=== PATIENT | male | born 1980 | race African-American/Black ===

== ENCOUNTER 2020-10-12 20:32 | Emergency (ER) | payer OTHER ==
[2020-10-12 21:23] LABS: #Basophils 0.1 thou/uL (0.0-0.2); #Eosinphils 0.1 thou/uL (0.0-0.7); #Lymphocytes 2.7 thou/uL (1.20-3.40); #Monocytes 1.1 thou/uL (0.11-0.59); #Neutrophils 15.5 thou/uL (1.40-6.50); %Basophils 0.4 % (0.0-1.0); %Eosinophils 0.4 % (0.0-10.0); %Lymphocytes 13.8 % (21.0-51.0); %Monocytes 5.7 % (0.0-10.0); %Neutrophils 79.8 % (42.0-75.0); Hemoglobin 14.2 g/dL (14.0-18.0); Mean Corpuscular HGB CONC 32.5 g/dL (32.0-36.0); Mean Corpuscular Hemoglobin 32.1 pg (27.0-31.0); Mean Corpuscular Volume 98.8 fL (78.0-98.0); Mean Platelet Volume 7.3 fL (7.4-10.4); Platelet Count 322 thou/uL (130-400); RBC Distribution Width 13.4 % (11.5-14.5); Red Blood Cell (RBC) Count 4.42 mill/uL (4.70-6.10); White Blood Cell (WBC) Count 19.4 thou/uL (4.8-10.8)
[2020-10-12] MEDS ORDERED: Clindamycin/D5W 900 mg/50 ml Premix Bag ONE (21:25)
[2020-10-12] MEDS ORDERED: Ketorolac Tromethamine 30 MG/ML VIAL ONE (21:33)
[2020-10-12 21:49] LABS: ALT (SGPT) 11 U/L (8-55); AST (SGOT) 9 U/L (5-34); Albumin 3.8 g/dL (3.5-5.0); Alkaline Phosphatase 85 U/L (40-110); Anion Gap 11 mmol/L (10-20); BUN (Urea Nitrogen) 23 mg/dL (8.9-20.6); Bilirubin, Total 0.2 mg/dL (0.2-1.2); Calc. Creatinine Clearance 0 mL/min (70-130); Calcium 8.9 mg/dL (7.8-10.44); Carbon Dioxide 33 mmol/L (22-29); Chloride 95 mmol/L (98-107); Globulin 2.7 g/dL (2.4-3.5); Glucose 82 mg/dL (70-105); Potassium 3.3 mmol/L (3.5-5.1); Protein, Total 6.5 g/dL (6.0-8.3); Sodium 136 mmol/L (136-145)
== END 2020-10-12 22:45 | disposition home or self-care (01) ==
LOC: ERS 20:32
DX: L03.115 Cellulitis of right lower limb (principal); Z87.19 Personal history of other diseases of the digestive system
CPT/HCPCS: 36415; 80053; 85025; 85652; 86140; 87040; 96365; 96375; J1885; J3490

== ENCOUNTER 2020-12-14 23:47 | Emergency (ER) | payer OTHER ==
[2020-12-15] MEDS ORDERED: Lidocaine 1% w/Epinephrine 1:100K 20 ML VIAL ONE (01:12)
[2020-12-15] MEDS ORDERED: Morphine 4 MG/ML VIAL ONE (01:25)
== END 2020-12-15 02:12 | disposition home or self-care (01) ==
LOC: ERS 23:47
DX: L02.211 Cutaneous abscess of abdominal wall (principal)
CPT/HCPCS: 10060; 96372; J2270

== ENCOUNTER 2020-12-20 13:42 | Inpatient (IN) | payer OTHER ==
[2020-12-20] MEDS ORDERED: Morphine 4 MG/ML VIAL ONE ×2 (16:07→17:25)
[2020-12-20] MEDS ORDERED: Ondansetron PF 4 MG/2 ML Vial ONE (16:07)
[2020-12-20 16:20] LABS: Hemoglobin 16.1 g/dL (14.0-18.0); Mean Corpuscular HGB CONC 32.9 g/dL (32.0-36.0); Mean Corpuscular Hemoglobin 32.3 pg (27.0-31.0); Mean Corpuscular Volume 98.1 fL (78.0-98.0); Mean Platelet Volume 6.8 fL (7.4-10.4); Platelet Count 432 thou/uL (130-400); RBC Distribution Width 13.1 % (11.5-14.5); Red Blood Cell (RBC) Count 4.99 mill/uL (4.70-6.10); White Blood Cell (WBC) Count 22.5 thou/uL (4.8-10.8)
[2020-12-20] MEDS ORDERED: Piperacillin/Tazobactam 3.375 GM VIAL ONE (16:32)
[2020-12-20 16:40] LABS: ALT (SGPT) 27 U/L (8-55); AST (SGOT) 15 U/L (5-34); Alkaline Phosphatase 91 U/L (40-110); Anion Gap 15 mmol/L (10-20); BUN (Urea Nitrogen) 13 mg/dL (8.9-20.6); Bilirubin, Total 0.4 mg/dL (0.2-1.2); Calc. Creatinine Clearance 0 mL/min (70-130); Calcium 9.4 mg/dL (7.8-10.44); Carbon Dioxide 25 mmol/L (22-29); Chloride 98 mmol/L (98-107); Globulin 3.2 g/dL (2.4-3.5); Glucose 100 mg/dL (70-105); Protein, Total 7.2 g/dL (6.0-8.3); Sodium 134 mmol/L (136-145)
[2020-12-20 16:43] LABS: Band 3 % (5-11); Lymphocytes 10 % (21-51); MDiff Complete? YES; Monocytes 4 % (0-10); Neutrophil 81 % (42-75); Platelet Morphology Comment Appears Increased; RBC Morphology Normal; Reactive Lymphocytes 2 % (0-10)
[2020-12-20] MEDS ORDERED: Vancomycin 1.5 GRAM/300 ML BAG 1.5 GM in Premix Bag 1 BAG IVPB SCH (16:45)
[2020-12-20] MEDS ORDERED: Cefepime 2 GM VIAL ONE (17:23)
[2020-12-20] MEDS ORDERED: Acetaminophen 325 MG TAB PO PRN (18:28)
[2020-12-20 19:20] LABS: Lactic Acid 2.2 mmol/L (0.5-2.2)
[2020-12-20] MEDS: Cefepime 2 GM in Sodium Chloride 0.9% 100 ML IVPB SCH (20:29)
[2020-12-20] MEDS ORDERED: Nicotine 21 MG PATCH TD SCH (21:00)
[2020-12-20] MEDS: Sodium Chloride 0.9% 1,000 ML IV SCH (21:26)
[2020-12-20] MEDS: Morphine 2 MG/ML VIAL SLOW IVP PRN (21:28)
[2020-12-20 21:42] VITALS: BMI 23.3
[2020-12-20] MEDS: HYDROcodone/Acetaminophen 5/325 mg Tablet PO PRN (22:41)
[2020-12-21] MEDS: Morphine 2 MG/ML VIAL SLOW IVP PRN ×2 (02:05→08:02)
[2020-12-21] MEDS ORDERED: Vancomycin 1 GM in Premix Bag 1 BAG IVPB SCH (05:00)
[2020-12-21] MEDS: HYDROcodone/Acetaminophen 5/325 mg Tablet PO PRN (05:04)
[2020-12-21] MEDS: Sodium Chloride 0.9% 1,000 ML IV SCH (05:05)
[2020-12-21 06:08] LABS: #Eosinphils 0.1 thou/uL (0.0-0.7); #Lymphocytes 3.2 thou/uL (1.20-3.40); #Monocytes 0.6 thou/uL (0.11-0.59); #Neutrophils 7.1 thou/uL (1.40-6.50); %Basophils 0.3 % (0.0-1.0); %Eosinophils 0.6 % (0.0-10.0); %Lymphocytes 28.7 % (21.0-51.0); %Monocytes 5.7 % (0.0-10.0); %Neutrophils 64.7 % (42.0-75.0); Hemoglobin 13.8 g/dL (14.0-18.0); Mean Corpuscular Hemoglobin 32.8 pg (27.0-31.0); Mean Corpuscular Volume 99.1 fL (78.0-98.0); Platelet Count 393 thou/uL (130-400); RBC Distribution Width 13.1 % (11.5-14.5); Red Blood Cell (RBC) Count 4.21 mill/uL (4.70-6.10)
[2020-12-21 06:27] LABS: Anion Gap 8 mmol/L (10-20); BUN (Urea Nitrogen) 11 mg/dL (8.9-20.6); Calc. Creatinine Clearance 108 mL/min (70-130); Calcium 8.3 mg/dL (7.8-10.44); Carbon Dioxide 29 mmol/L (22-29); Chloride 103 mmol/L (98-107); Glucose 101 mg/dL (70-105); Potassium 4.1 mmol/L (3.5-5.1); Sodium 136 mmol/L (136-145)
[2020-12-21] MEDS: Cefepime 2 GM in Sodium Chloride 0.9% 100 ML IVPB SCH (07:56)
[2020-12-21 08:56] VITALS: BP 162/113; TEMP 98.3
[2020-12-21 11:10] LABS: SARS-CoV-2 PCR by NAA Not Detected (NotDetected)
== END 2020-12-21 08:55 | disposition home or self-care (01) | DRG 872 ==
LOC: ERS 13:42 → T4-B 18:13
PROVIDERS: ADMIT Internal Medicine; ATTEND Internal Medicine
DX: A41.9 Sepsis, unspecified organism (principal); L02.211 Cutaneous abscess of abdominal wall; F17.210 Nicotine dependence, cigarettes, uncomplicated; R03.0 Elevated blood-pressure reading, without diagnosis of hypertension; F31.9 Bipolar disorder, unspecified; Z20.822 Contact with and (suspected) exposure to COVID-19; Z88.8 Allergy status to other drugs, medicaments and biological substances
CPT/HCPCS: 36415; 80048; 80053; 83605; 85025; 87040; J0692; J2270; J2405; J2543; J3370; J3490; U0003; U0005

== ENCOUNTER 2021-04-01 10:41 | Emergency (ER) | payer OTHER ==
[~2021-04-01 10:41] MED LIST: Iopamidol-370 76% 500 ML 1 ML ONE
[2021-04-01 11:44] LABS: #Lymphocytes 1.9 thou/uL (1.20-3.40); #Monocytes 0.9 thou/uL (0.11-0.59); #Neutrophils 12.3 thou/uL (1.40-6.50); %Basophils 0.2 % (0.0-1.0); %Eosinophils 0.3 % (0.0-10.0); %Lymphocytes 12.5 % (21.0-51.0); %Monocytes 6.1 % (0.0-10.0); %Neutrophils 80.8 % (42.0-75.0); Hemoglobin 15.3 g/dL (14.0-18.0); Mean Corpuscular HGB CONC 35.2 g/dL (32.0-36.0); Mean Corpuscular Hemoglobin 34.2 pg (27.0-31.0); Mean Corpuscular Volume 97.2 fL (78.0-98.0); Mean Platelet Volume 7.2 fL (7.4-10.4); Platelet Count 363 thou/uL (130-400); RBC Distribution Width 12.8 % (11.5-14.5); Red Blood Cell (RBC) Count 4.47 mill/uL (4.70-6.10); White Blood Cell (WBC) Count 15.2 thou/uL (4.8-10.8)
[2021-04-01 12:32] LABS: Bilirubin Negative (Negative); Blood, Urine Negative (Negative); Clarity Clear (Clear); Glucose, Urine (Dipstick) Normal (Negative); Ketone, Urine 20 mg/dL (Negative); Leukocyte Negative Leu/uL (Negative); Nitrite Negative (Negative); Protein, Urine (Dipstick) 10 mg/dL (Neg-Trace); Specific Gravity, Urine 1.017 (1.002-1.036); Urobilinogen Normal mg/dL (Less than 2)
[2021-04-01 12:32] LABS: ALT (SGPT) 22 U/L (8-55); AST (SGOT) 16 U/L (5-34); Albumin 3.6 g/dL (3.5-5.0); Alkaline Phosphatase 65 U/L (40-110); Anion Gap 15 mmol/L (10-20); BUN (Urea Nitrogen) 19 mg/dL (8.9-20.6); Bilirubin, Total 0.6 mg/dL (0.2-1.2); Calc. Creatinine Clearance 0 mL/min (70-130); Calcium 8.6 mg/dL (7.8-10.44); Carbon Dioxide 27 mmol/L (22-29); Chloride 94 mmol/L (98-107); Globulin 2.3 g/dL (2.4-3.5); Glucose 89 mg/dL (70-105); Lipase 66 U/L (8-78); Potassium 3.3 mmol/L (3.5-5.1); Protein, Total 5.9 g/dL (6.0-8.3); Sodium 133 mmol/L (136-145)
[2021-04-01] MEDS ORDERED: Piperacillin/Tazobactam 3.375 GM VIAL ONE (12:45)
[2021-04-01] MEDS ORDERED: Ketorolac Tromethamine 30 MG/ML VIAL ONE (12:45)
== END 2021-04-01 16:07 | disposition home or self-care (01) ==
LOC: ERS 10:41
DX: R10.32 Left lower quadrant pain (principal); F17.210 Nicotine dependence, cigarettes, uncomplicated
CPT/HCPCS: 36415; 71045; 74177; 80053; 81003; 83605; 83690; 84484; 85025; 87040; 87086; 93005; 96365; 96366; 96375; J1885; J2543

== ENCOUNTER 2021-07-10 08:16 | Emergency (ER) | payer OTHER ==
[2021-07-10] MEDS ORDERED: Ketorolac Tromethamine 30 MG/ML VIAL ONE (13:50)
[2021-07-10] MEDS ORDERED: Ondansetron PF 4 MG/2 ML Vial ONE (13:50)
[2021-07-10 14:17] LABS: #Lymphocytes 2.1 thou/uL (1.20-3.40); #Monocytes 0.6 thou/uL (0.11-0.59); #Neutrophils 7.2 thou/uL (1.40-6.50); %Basophils 0.2 % (0.0-1.0); %Eosinophils 0.3 % (0.0-10.0); %Lymphocytes 21.3 % (21.0-51.0); %Monocytes 5.8 % (0.0-10.0); %Neutrophils 72.4 % (42.0-75.0); Hemoglobin 16.9 g/dL (14.0-18.0); Mean Corpuscular HGB CONC 33.7 g/dL (32.0-36.0); Mean Corpuscular Hemoglobin 33.1 pg (27.0-31.0); Mean Corpuscular Volume 98.2 fL (78.0-98.0); Mean Platelet Volume 7.1 fL (7.4-10.4); Platelet Count 339 thou/uL (130-400); RBC Distribution Width 12.2 % (11.5-14.5); White Blood Cell (WBC) Count 9.9 thou/uL (4.8-10.8)
[2021-07-10 14:23] LABS: Bilirubin Negative (Negative); Blood, Urine Negative (Negative); Clarity Turbid (Clear); Glucose, Urine (Dipstick) Normal (Negative); Ketone, Urine Trace mg/dL (Negative); Leukocyte Negative Leu/uL (Negative); Nitrite Negative (Negative); Protein, Urine (Dipstick) 20 mg/dL (Neg-Trace); Specific Gravity, Urine 1.016 (1.002-1.036); Urobilinogen Normal mg/dL (Less than 2)
[2021-07-10 14:33] LABS: ALT (SGPT) 20 U/L (8-55); AST (SGOT) 14 U/L (5-34); Albumin 4.2 g/dL (3.5-5.0); Alkaline Phosphatase 82 U/L (40-110); Anion Gap 13 mmol/L (10-20); BUN (Urea Nitrogen) 18 mg/dL (8.9-20.6); Bilirubin, Total 0.4 mg/dL (0.2-1.2); Calc. Creatinine Clearance 0 mL/min (70-130); Calcium 10.1 mg/dL (7.8-10.44); Carbon Dioxide 36 mmol/L (22-29); Chloride 92 mmol/L (98-107); Globulin 3.1 g/dL (2.4-3.5); Glucose 103 mg/dL (70-105); Lipase 60 U/L (8-78); Potassium 3.1 mmol/L (3.5-5.1); Protein, Total 7.3 g/dL (6.0-8.3); Sodium 138 mmol/L (136-145)
== END 2021-07-10 16:07 | disposition home or self-care (01) ==
LOC: ERS 08:16
DX: K29.00 Acute gastritis without bleeding (principal); R10.814 Left lower quadrant abdominal tenderness; F17.210 Nicotine dependence, cigarettes, uncomplicated; Z87.19 Personal history of other diseases of the digestive system
CPT/HCPCS: 80053; 81003; 83690; 84484; 85025; 93005; 96374; 96375; J1885; J2405

== ENCOUNTER 2021-08-28 14:56 | Inpatient (IN) | payer OTHER ==
[~2021-08-28 14:56] MED LIST changes: +GASTROGRAFIN 30 ML BOT ONE
[2021-08-28 16:58] LABS: #Basophils 0.1 thou/uL (0.0-0.2); #Eosinphils 0.1 thou/uL (0.0-0.7); #Lymphocytes 1.9 thou/uL (1.20-3.40); #Monocytes 0.6 thou/uL (0.11-0.59); #Neutrophils 9.9 thou/uL (1.40-6.50); %Basophils 0.7 % (0.0-1.0); %Eosinophils 0.9 % (0.0-10.0); %Lymphocytes 15.4 % (21.0-51.0); %Monocytes 4.4 % (0.0-10.0); %Neutrophils 78.6 % (42.0-75.0); Hemoglobin 13.2 g/dL (14.0-18.0); Mean Corpuscular HGB CONC 32.2 g/dL (32.0-36.0); Mean Corpuscular Hemoglobin 32.5 pg (27.0-31.0); Platelet Count 369 thou/uL (130-400); RBC Distribution Width 12.8 % (11.5-14.5); Red Blood Cell (RBC) Count 4.07 mill/uL (4.70-6.10); White Blood Cell (WBC) Count 12.6 thou/uL (4.8-10.8)
[2021-08-28 17:12] LABS: ALT (SGPT) 29 U/L (8-55); AST (SGOT) 19 U/L (5-34); Albumin 3.8 g/dL (3.5-5.0); Alkaline Phosphatase 101 U/L (40-110); Anion Gap 12 mmol/L (10-20); BUN (Urea Nitrogen) 19 mg/dL (8.9-20.6); Bilirubin, Total 0.3 mg/dL (0.2-1.2); Calc. Creatinine Clearance 0 mL/min (70-130); Calcium 8.7 mg/dL (7.8-10.44); Carbon Dioxide 30 mmol/L (22-29); Chloride 100 mmol/L (98-107); Globulin 2.2 g/dL (2.4-3.5); Glucose 93 mg/dL (70-105); Lipase 280 U/L (8-78); Potassium 3.8 mmol/L (3.5-5.1); Sodium 138 mmol/L (136-145)
[2021-08-28 17:26] LABS: Bilirubin Negative (Negative); Blood, Urine Negative (Negative); Clarity Clear (Clear); Glucose, Urine (Dipstick) 70 mg/dL (Negative); Ketone, Urine Negative (Negative); Leukocyte Negative Leu/uL (Negative); Nitrite Negative (Negative); Protein, Urine (Dipstick) 10 mg/dL (Neg-Trace); Specific Gravity, Urine 1.038 (1.002-1.036); Urobilinogen Normal mg/dL (Less than 2); pH, Urine 7.5 (5.0-9.0)
[2021-08-28] MEDS ORDERED: Ondansetron PF 4 MG/2 ML Vial ONE (17:58)
[2021-08-28] MEDS ORDERED: Morphine 4 MG/ML VIAL ONE (17:58)
[2021-08-28] MEDS ORDERED: diphenhydrAMINE 50 MG/ML VIAL ONE (18:42)
[2021-08-28] MEDS ORDERED: Metoclopramide HCl 10 MG/2 ML VIAL ONE (18:42)
[2021-08-28 18:55] LABS: Amphetamine Detected (NotDetected); Barbiturates Screen Not Detected (NotDetected); Benzodiazepine Screen Not Detected (NotDetected); Cocaine Metabolite Screen Not Detected (NotDetected); Methadone Not Detected (NotDetected); Methamphetamine Detected (NotDetected); Opiate Screen Not Detected (NotDetected); Oxycodone Screen Not Detected (NotDetected); Phencyclidine (PCP) Not Detected (NotDetected); THC/Cannabinoid Screen Detected (NotDetected); Tricyclic Screen Not Detected (NotDetected)
[2021-08-28] MEDS ORDERED: Sodium Chloride 0.9% 1,000 ML IV SCH (20:15)
[2021-08-28] MEDS ORDERED: Ondansetron ODT 4 MG TAB SL PRN (20:15)
[2021-08-28] MEDS ORDERED: Ondansetron PF 4 MG/2 ML Vial IVP PRN (20:15)
[2021-08-28] MEDS ORDERED: Enoxaparin Sodium 40 MG/0.4 ML SYRINGE SC SCH (20:30)
[2021-08-28] MEDS ORDERED: diphenhydrAMINE 12.5 MG in Sodium Chloride 0.9% 50 ML IVPB PRN (21:42)
[2021-08-28] MEDS: hydrALAZINE 20 MG/ML VIAL SLOW IVP PRN (22:57)
[2021-08-28] MEDS: Lactated Ringer's 1,000 ML IV SCH (22:58)
[2021-08-28 23:00] LABS: Alcohol Less than 10 mg/dL (Less than 10); Iron 132 ug/dL (65-175)
[2021-08-28 23:17] LABS: Ferritin 67.51 ng/mL (22-322)
[2021-08-28 23:24] LABS: Vitamin B12 422 pg/mL (211-911)
[2021-08-28 23:35] VITALS: BMI 21.5
[2021-08-29 01:38] LABS: HBSAg Index 0.23 S/CO (0-0.99); HIV (1/2) Antibody/Antigen Non-Reactive (NonReactive); HIV 1/2 INDEX 0.16 S/CO (<1.00); Hep A IgM AB Non-Reactive (NonReactive); Hep A IgM S/CO 0.11 S/CO (0-0.79); Hep B Surf Ag Non-Reactive S/CO (NonReactive); Hep C IgG Ab Non-Reactive (NonReactive); Hep C Index 0.06 S/CO (0-0.79); Hepatitis B Core IgM Abs Non-Reactive (NonReactive)
[2021-08-29] MEDS: Morphine 4 MG/ML VIAL SLOW IVP PRN ×4 (04:00→18:25)
[2021-08-29] MEDS: Lactated Ringer's 1,000 ML IV SCH ×4 (04:04→16:30)
[2021-08-29] MEDS: hydrALAZINE 20 MG/ML VIAL SLOW IVP PRN (04:17)
[2021-08-29] MEDS ORDERED: Amlodipine 5 MG TAB PO SCH (09:00)
[2021-08-29] MEDS ORDERED: Ibuprofen 600 MG TAB PO PRN (11:18)
[2021-08-29] MEDS ORDERED: Ibuprofen 600 MG TAB PO SCH (11:30)
[2021-08-29 13:09] LABS: Syphilis Antibody INDETERMINATE (Nonreactive); Syphilis Antibody Index 8.73 S/CO (<1.00 Non-Reactive)
[2021-08-29] MEDS ORDERED: Cyclobenzaprine 10 MG TAB PO SCH (14:00)
[2021-08-29 14:37] LABS: SARS-CoV-2 PCR by NAA Not Detected (NotDetected)
[2021-08-29 16:39] LABS: #Basophils 0.1 thou/uL (0.0-0.2); #Eosinphils 0.1 thou/uL (0.0-0.7); #Lymphocytes 2.9 thou/uL (1.20-3.40); #Monocytes 0.8 thou/uL (0.11-0.59); #Neutrophils 9.2 thou/uL (1.40-6.50); %Basophils 0.6 % (0.0-1.0); %Eosinophils 0.8 % (0.0-10.0); %Lymphocytes 22.4 % (21.0-51.0); %Neutrophils 70.2 % (42.0-75.0); Hemoglobin 13.6 g/dL (14.0-18.0); Mean Corpuscular HGB CONC 32.4 g/dL (32.0-36.0); Mean Corpuscular Hemoglobin 32.7 pg (27.0-31.0); Mean Platelet Volume 6.6 fL (7.4-10.4); Platelet Count 382 thou/uL (130-400); RBC Distribution Width 13.1 % (11.5-14.5); Red Blood Cell (RBC) Count 4.14 mill/uL (4.70-6.10); White Blood Cell (WBC) Count 13.1 thou/uL (4.8-10.8)
[2021-08-29 17:18] LABS: ALT (SGPT) 31 U/L (8-55); AST (SGOT) 18 U/L (5-34); Albumin 3.6 g/dL (3.5-5.0); Anion Gap 13 mmol/L (10-20); BUN (Urea Nitrogen) 11 mg/dL (8.9-20.6); Bilirubin, Total 0.3 mg/dL (0.2-1.2); Calc. Creatinine Clearance 95 mL/min (70-130); Calcium 8.6 mg/dL (7.8-10.44); Carbon Dioxide 26 mmol/L (22-29); Cardiac Risk 2.4 (Less than 4.5); Chloride 103 mmol/L (98-107); Cholesterol 145 mg/dl (< 200 Desired); Globulin 2.4 g/dL (2.4-3.5); Glucose 110 mg/dL (70-105); HDL Cholesterol 60 mg/dL (>60 Neg Risk); LDL Cholesterol, Calculated 68 mg/dL; Potassium 3.8 mmol/L (3.5-5.1); Sodium 138 mmol/L (136-145); Triglycerides 83 mg/dL (Less than 150)
[2021-08-29 17:39] LABS: Alkaline Phosphatase 86 U/L (40-110)
[2021-08-29 20:15] LABS: Lactic Acid 2.3 mmol/L (0.5-2.2)
[2021-08-29 20:34] VITALS: BP 149/94; TEMP 97.7
[2021-08-30] MEDS ORDERED: Amlodipine 5 MG TAB PO SCH (09:00)
[2021-08-30] MEDS ORDERED: Nicotine 21 MG PATCH TD SCH (09:00)
[2021-08-30 13:38] LABS: Hematocrit 39.7 % (37.5-51.0); RBC Folate Test Component 668 ng/mL (>498)
== END 2021-08-29 20:40 | disposition left against medical advice (07) | DRG 871 ==
LOC: ERS 14:56 → T4-A 18:14
PROVIDERS: ADMIT Student in an Organized Health Care Education/Training Program; ATTEND Student in an Organized Health Care Education/Training Program
DX: A41.9 Sepsis, unspecified organism (principal); K85.90 Acute pancreatitis without necrosis or infection, unspecified; Z20.822 Contact with and (suspected) exposure to COVID-19; Z53.29 Procedure and treatment not carried out because of patient's decision for other reasons; G44.209 Tension-type headache, unspecified, not intractable; N42.89 Other specified disorders of prostate; F17.210 Nicotine dependence, cigarettes, uncomplicated; F19.10 Other psychoactive substance abuse, uncomplicated; F15.10 Other stimulant abuse, uncomplicated; F12.10 Cannabis abuse, uncomplicated; F10.10 Alcohol abuse, uncomplicated; K52.9 Noninfective gastroenteritis and colitis, unspecified; Z88.8 Allergy status to other drugs, medicaments and biological substances; Z87.19 Personal history of other diseases of the digestive system; Z83.3 Family history of diabetes mellitus; Z84.1 Family history of disorders of kidney and ureter; Z81.8 Family history of other mental and behavioral disorders; Z83.1 Family history of other infectious and parasitic diseases; Z59.00 Homelessness unspecified
CPT/HCPCS: 36415; 70450; 71045; 74177; 76705; 76770; 80053; 80061; 80074; 80306; 80307; 81003; 82607; 82728; 82747; 83036; 83540; 83605; 83690; 84145; 84484; 85025; 86593; 86780; 87040; 87086; 87389; 93005; 96374; 96375; J0360; J1200; J2270; J2405; J2765; J7050; J7120; Q9963; Q9967; U0003; U0005

== ENCOUNTER 2022-02-10 21:49 | Observation (INO) | payer OTHER ==
[2022-02-10] MEDS ORDERED: Nitroglycerin 2% Ointment 1 INCH/1 GM Packet ONE (22:11)
[2022-02-10] MEDS ORDERED: hydrALAZINE 20 MG/ML VIAL ONE (22:11)
[2022-02-10 22:24] LABS: #Eosinphils 0.1 thou/uL (0.0-0.7); #Lymphocytes 2.1 thou/uL (1.20-3.40); #Monocytes 0.4 thou/uL (0.11-0.59); #Neutrophils 9.4 thou/uL (1.40-6.50); %Basophils 0.3 % (0.0-1.0); %Eosinophils 0.5 % (0.0-10.0); %Lymphocytes 17.3 % (21.0-51.0); %Monocytes 3.4 % (0.0-10.0); %Neutrophils 78.6 % (42.0-75.0); Hemoglobin 13.7 g/dL (14.0-18.0); Mean Corpuscular HGB CONC 33.8 g/dL (32.0-36.0); Mean Corpuscular Hemoglobin 32.8 pg (27.0-31.0); Mean Platelet Volume 7.1 fL (7.4-10.4); Platelet Count 381 thou/uL (130-400); RBC Distribution Width 13.4 % (11.5-14.5); Red Blood Cell (RBC) Count 4.19 mill/uL (4.70-6.10)
[2022-02-10 22:46] LABS: ALT (SGPT) 25 U/L (8-55); AST (SGOT) 19 U/L (5-34); Albumin 4.3 g/dL (3.5-5.0); Alkaline Phosphatase 77 U/L (40-110); Anion Gap 15 mmol/L (10-20); BUN (Urea Nitrogen) 18 mg/dL (8.9-20.6); Bilirubin, Total 0.4 mg/dL (0.2-1.2); CK (CPK) 111 U/L (30-200); Calc. Creatinine Clearance 0 mL/min (70-130); Calcium 9.1 mg/dL (7.8-10.44); Carbon Dioxide 33 mmol/L (22-29); Chloride 96 mmol/L (98-107); Estimated GFR 114; Globulin 2.6 g/dL (2.4-3.5); Glucose 108 mg/dL (70-105); Protein, Total 6.9 g/dL (6.0-8.3); Sodium 141 mmol/L (136-145)
[2022-02-10] MEDS ORDERED: Ondansetron PF 4 MG/2 ML Vial ONE (23:57)
[2022-02-11 00:13] LABS: Amphetamine Detected (NotDetected); Barbiturates Screen Not Detected (NotDetected); Benzodiazepine Screen Not Detected (NotDetected); Cocaine Metabolite Screen Detected (NotDetected); Methadone Not Detected (NotDetected); Methamphetamine Detected (NotDetected); Opiate Screen Not Detected (NotDetected); Oxycodone Screen Not Detected (NotDetected); Phencyclidine (PCP) Not Detected (NotDetected); THC/Cannabinoid Screen Detected (NotDetected); Tricyclic Screen Not Detected (NotDetected)
[2022-02-11 01:06] VITALS: BMI 19.8
[2022-02-11 01:43] LABS: Troponin I 0.012 ng/mL (< 0.028)
[2022-02-11] MEDS ORDERED: Acetaminophen 325 MG TAB PO SCH (04:00)
[2022-02-11] MEDS ORDERED: Ondansetron ODT 4 MG TAB PO PRN (04:33)
[2022-02-11] MEDS ORDERED: Nitroglycerin 0.4 MG TAB (25 Tab Bottle) SL PRN (04:33)
[2022-02-11] MEDS ORDERED: Acetaminophen 650 MG Suppository PR PRN (04:33)
[2022-02-11] MEDS ORDERED: Ondansetron PF 4 MG/2 ML Vial IVP PRN (04:33)
[2022-02-11] MEDS ORDERED: Lorazepam 1 MG TAB PO PRN ×2 (04:36→20:55)
[2022-02-11] MEDS ORDERED: Aspirin Chewable 81 MG TAB PO SCH ×2 (04:45→09:00)
[2022-02-11 05:07] LABS: Troponin I 0.027 ng/mL (< 0.028)
[2022-02-11] MEDS ORDERED: hydrALAZINE 20 MG/ML VIAL SLOW IVP PRN (06:48)
[2022-02-11] MEDS ORDERED: Amlodipine 10 MG TAB PO SCH (09:00)
[2022-02-11] MEDS ORDERED: Enoxaparin Sodium 40 MG/0.4 ML SYRINGE SC SCH (09:00)
[2022-02-11 12:20] LABS: Anion Gap 13 mmol/L (10-20); BUN (Urea Nitrogen) 16 mg/dL (8.9-20.6); Calc. Creatinine Clearance 87 mL/min (70-130); Calcium 8.5 mg/dL (7.8-10.44); Carbon Dioxide 28 mmol/L (22-29); Chloride 99 mmol/L (98-107); Estimated GFR 112; Glucose 102 mg/dL (70-105); Magnesium 1.7 mg/dL (1.6-2.6); Phosphorus 2.6 mg/dL (2.3-4.7); Potassium 3.4 mmol/L (3.5-5.1)
[2022-02-11 12:25] LABS: Sodium 137 mmol/L (136-145)
[2022-02-11] MEDS ORDERED: Electrolyte Replacement Protocol 1 EACH FS SCH (12:45)
[2022-02-11] MEDS ORDERED: Potassium Chloride 20 MEQ TAB PO SCH (13:00)
[2022-02-11] MEDS ORDERED: Magnesium 2 GM/50 ML(in water) 2 GM in Premix Bag 1 BAG IVPB SCH (13:00)
[2022-02-11] MEDS ORDERED: Electrolyte Replacement Protocol FS PRN (13:00)
[2022-02-11] MEDS: Acetaminophen 325 MG TAB PO PRN ×2 (15:37→20:45)
[2022-02-11 17:38] LABS: Potassium 3.7 mmol/L (3.5-5.1)
[2022-02-11] MEDS ORDERED: cloNIDine 0.1 MG TAB PO PRN (19:14)
[2022-02-11] MEDS ORDERED: Ketorolac Tromethamine 30 MG/ML VIAL IVP SCH (23:59)
[2022-02-12 04:22] VITALS: BP 152/91; TEMP 97.5
[2022-02-12] MEDS ORDERED: Amlodipine 5 MG TAB PO SCH (09:00)
== END 2022-02-12 05:30 | disposition left against medical advice (07) ==
LOC: ERS 21:49 → 2SW 23:26
PROVIDERS: ADMIT Student in an Organized Health Care Education/Training Program; ATTEND Student in an Organized Health Care Education/Training Program
DX: R07.2 Precordial pain (principal); I16.0 Hypertensive urgency; F17.210 Nicotine dependence, cigarettes, uncomplicated; F12.10 Cannabis abuse, uncomplicated; F14.10 Cocaine abuse, uncomplicated; D72.829 Elevated white blood cell count, unspecified; K21.9 Gastro-esophageal reflux disease without esophagitis; Z53.29 Procedure and treatment not carried out because of patient's decision for other reasons; Z88.8 Allergy status to other drugs, medicaments and biological substances; Z20.822 Contact with and (suspected) exposure to COVID-19
CPT/HCPCS: 36415; 71045; 80048; 80053; 80306; 82550; 83735; 84100; 84484; 85025; 93005; 94760; 96372; 96374; 96375; G0378; J0360; J1650; J1885; J2405; J3475; U0003; U0005

== ENCOUNTER 2022-02-19 02:45 | Emergency (ER) | payer OTHER ==
[2022-02-19] MEDS ORDERED: Metoclopramide HCl 10 MG/2 ML VIAL ONE (03:13)
[2022-02-19] MEDS ORDERED: Ketorolac Tromethamine 30 MG/ML VIAL ONE (03:13)
[2022-02-19 03:49] LABS: #Basophils 0.1 thou/uL (0.0-0.2); #Eosinphils 0.1 thou/uL (0.0-0.7); #Lymphocytes 2.1 thou/uL (1.20-3.40); #Monocytes 0.8 thou/uL (0.11-0.59); #Neutrophils 8.5 thou/uL (1.40-6.50); %Basophils 0.4 % (0.0-1.0); %Eosinophils 1.1 % (0.0-10.0); %Lymphocytes 18.2 % (21.0-51.0); %Monocytes 7.2 % (0.0-10.0); %Neutrophils 73.1 % (42.0-75.0); Hemoglobin 14.6 g/dL (14.0-18.0); Mean Corpuscular HGB CONC 35.9 g/dL (32.0-36.0); Mean Corpuscular Hemoglobin 35.4 pg (27.0-31.0); Mean Corpuscular Volume 98.6 fL (78.0-98.0); Mean Platelet Volume 6.8 fL (7.4-10.4); Platelet Count 373 thou/uL (130-400); RBC Distribution Width 13.1 % (11.5-14.5); Red Blood Cell (RBC) Count 4.13 mill/uL (4.70-6.10); White Blood Cell (WBC) Count 11.6 thou/uL (4.8-10.8)
[2022-02-19 04:39] LABS: ALT (SGPT) 16 U/L (8-55); AST (SGOT) 14 U/L (5-34); Albumin 4.1 g/dL (3.5-5.0); Alkaline Phosphatase 79 U/L (40-110); Anion Gap 16 mmol/L (10-20); BUN (Urea Nitrogen) 19 mg/dL (8.9-20.6); Bilirubin, Total 0.4 mg/dL (0.2-1.2); Calc. Creatinine Clearance 0 mL/min (70-130); Calcium 9.5 mg/dL (7.8-10.44); Carbon Dioxide 24 mmol/L (22-29); Chloride 99 mmol/L (98-107); Estimated GFR 114; Globulin 2.6 g/dL (2.4-3.5); Glucose 87 mg/dL (70-105); Lipase 72 U/L (8-78); Potassium 4.1 mmol/L (3.5-5.1); Protein, Total 6.7 g/dL (6.0-8.3); Sodium 135 mmol/L (136-145)
== END 2022-02-19 05:51 | disposition home or self-care (01) ==
LOC: ERS 02:45
DX: S30.1XXA Contusion of abdominal wall, initial encounter (principal); R51.9 Headache, unspecified; F17.210 Nicotine dependence, cigarettes, uncomplicated; X58.XXXA Exposure to other specified factors, initial encounter
CPT/HCPCS: 36415; 80053; 83690; 85025; 94760; 96374; 96375; J1885; J2765

== ENCOUNTER 2022-03-19 22:15 | Emergency (ER) | payer OTHER ==
[2022-03-19] MEDS ORDERED: Morphine 4 MG/ML VIAL ONE (22:53)
[2022-03-19] MEDS ORDERED: Ketorolac Tromethamine 30 MG/ML VIAL ONE (22:53)
[2022-03-19 23:16] LABS: #Lymphocytes 1.7 thou/uL (1.20-3.40); #Monocytes 0.6 thou/uL (0.11-0.59); #Neutrophils 7.9 thou/uL (1.40-6.50); %Basophils 0.3 % (0.0-1.0); %Eosinophils 0.3 % (0.0-10.0); %Lymphocytes 16.9 % (21.0-51.0); %Monocytes 5.3 % (0.0-10.0); %Neutrophils 77.2 % (42.0-75.0); Hemoglobin 14.7 g/dL (14.0-18.0); Mean Corpuscular HGB CONC 30.4 g/dL (32.0-36.0); Mean Corpuscular Hemoglobin 29.5 pg (27.0-31.0); Mean Corpuscular Volume 96.8 fL (78.0-98.0); Mean Platelet Volume 7.4 fL (7.4-10.4); Platelet Count 433 thou/uL (130-400); RBC Distribution Width 12.9 % (11.5-14.5); White Blood Cell (WBC) Count 10.2 thou/uL (4.8-10.8)
[2022-03-19 23:31] LABS: ALT (SGPT) 20 U/L (8-55); AST (SGOT) 14 U/L (5-34); Albumin 4.3 g/dL (3.5-5.0); Alkaline Phosphatase 78 U/L (40-110); Anion Gap 13 mmol/L (10-20); BUN (Urea Nitrogen) 21 mg/dL (8.9-20.6); Bilirubin, Total 0.3 mg/dL (0.2-1.2); Calc. Creatinine Clearance 0 mL/min (70-130); Calcium 9.5 mg/dL (7.8-10.44); Carbon Dioxide 36 mmol/L (22-29); Chloride 88 mmol/L (98-107); Estimated GFR 76; Globulin 2.8 g/dL (2.4-3.5); Glucose 113 mg/dL (70-105); Lipase 139 U/L (8-78); Protein, Total 7.1 g/dL (6.0-8.3); Sodium 134 mmol/L (136-145)
[2022-03-19 23:42] LABS: Potassium 2.9 mmol/L (3.5-5.1)
[2022-03-20 00:26] LABS: Bacteria/HPF None Seen HPF (None Seen); Bilirubin Negative (Negative); Blood, Urine Negative (Negative); Clarity Turbid (Clear); Glucose, Urine (Dipstick) 50 mg/dL (Negative); Ketone, Urine Negative (Negative); Leukocyte Negative Leu/uL (Negative); Nitrite Negative (Negative); Protein, Urine (Dipstick) 70 mg/dL (Neg-Trace); Specific Gravity, Urine 1.017 (1.002-1.036); Squamous Epithelial None Seen HPF (0-3); Urobilinogen Normal mg/dL (Less than 2); pH, Urine 8.5 (5.0-9.0)
[2022-03-20 00:36] LABS: RBC/HPF 0-3 HPF (0-3); Sperm/HPF 1+ HPF (None Seen); WBC/HPF 0-3 HPF (0-3)
[2022-03-20] MEDS ORDERED: Morphine 4 MG/ML VIAL ONE (00:40)
[2022-03-20 01:42] LABS: SARS-CoV-2 NAA Rapid Test Not Detected (NotDetected)
[2022-03-20] MEDS ORDERED: Acetaminophen 500 MG TAB ONE (03:40)
[2022-03-20] MEDS ORDERED: Iopamidol 370 76% 100 ML VIAL ONE (09:44)
== END 2022-03-20 03:50 | disposition home or self-care (01) ==
LOC: ERS 22:15
DX: K59.00 Constipation, unspecified (principal); F17.210 Nicotine dependence, cigarettes, uncomplicated; Z20.822 Contact with and (suspected) exposure to COVID-19
CPT/HCPCS: 36415; 71045; 74177; 80053; 81003; 81015; 83605; 83690; 84484; 85025; 93005; 96361; 96374; 96375; 96376; J1885; J2270; Q9967; U0002

== ENCOUNTER 2022-03-26 05:47 | Observation (INO) | payer OTHER ==
[2022-03-26] MEDS ORDERED: Dicyclomine 20 MG/2 ML VIAL ONE (06:08)
[2022-03-26 06:34] LABS: #Basophils 0.1 thou/uL (0.0-0.2); #Eosinphils 0.1 thou/uL (0.0-0.7); #Monocytes 0.5 thou/uL (0.11-0.59); #Neutrophils 9.2 thou/uL (1.40-6.50); %Basophils 0.5 % (0.0-1.0); %Eosinophils 1.2 % (0.0-10.0); %Lymphocytes 16.4 % (21.0-51.0); %Monocytes 4.3 % (0.0-10.0); %Neutrophils 77.6 % (42.0-75.0); Hemoglobin 14.4 g/dL (14.0-18.0); Mean Corpuscular HGB CONC 33.6 g/dL (32.0-36.0); Mean Corpuscular Hemoglobin 33.5 pg (27.0-31.0); Mean Corpuscular Volume 99.6 fL (78.0-98.0); Mean Platelet Volume 7.4 fL (7.4-10.4); Platelet Count 419 thou/uL (130-400); RBC Distribution Width 12.8 % (11.5-14.5); Red Blood Cell (RBC) Count 4.31 mill/uL (4.70-6.10); White Blood Cell (WBC) Count 11.9 thou/uL (4.8-10.8)
[2022-03-26 06:51] LABS: Anion Gap 10 mmol/L (10-20); BUN (Urea Nitrogen) 19 mg/dL (8.9-20.6); Calc. Creatinine Clearance 0 mL/min (70-130); Carbon Dioxide 33 mmol/L (22-29); Chloride 99 mmol/L (98-107); Potassium 4.2 mmol/L (3.5-5.1); Sodium 138 mmol/L (136-145)
[2022-03-26 06:52] LABS: ALT (SGPT) 14 U/L (8-55); AST (SGOT) 13 U/L (5-34); Albumin 4.4 g/dL (3.5-5.0); Alkaline Phosphatase 87 U/L (40-110); Bilirubin, Total 0.2 mg/dL (0.2-1.2); Calcium 9.7 mg/dL (7.8-10.44); Estimated GFR 75; Globulin 2.4 g/dL (2.4-3.5); Glucose 97 mg/dL (70-105); Lipase 347 U/L (8-78); Protein, Total 6.8 g/dL (6.0-8.3)
[2022-03-26] MEDS ORDERED: Ondansetron PF 4 MG/2 ML Vial ONE ×2 (08:09→12:28)
[2022-03-26] MEDS ORDERED: Morphine 4 MG/ML VIAL ONE ×2 (08:23→12:27)
[2022-03-26] MEDS ORDERED: Ondansetron PF 4 MG/2 ML Vial IVP PRN (08:55)
[2022-03-26] MEDS ORDERED: Ondansetron ODT 4 MG TAB PO PRN (08:55)
[2022-03-26] MEDS ORDERED: Acetaminophen 650 MG Suppository PR PRN (08:55)
[2022-03-26] MEDS ORDERED: Iopamidol-370 76% 500 ML 1 ML ONE (08:58)
[2022-03-26] MEDS ORDERED: Morphine 2 MG/ML VIAL SLOW IVP PRN (08:59)
[2022-03-26] MEDS: Lactated Ringer's 1,000 ML IV SCH ×3 (09:36→23:39)
[2022-03-26] MEDS ORDERED: hydrALAZINE 20 MG/ML VIAL SLOW IVP PRN (11:04)
[2022-03-26] MEDS ORDERED: Lidocaine 2% Viscous Solution 10 ML, Aluminum & Magnesium Hydroxide 30 ML SSW SCH (11:15)
[2022-03-26] MEDS ORDERED: Lidocaine Viscous Sol 2% 15 ml UD Cup ONE (11:17)
[2022-03-26] MEDS ORDERED: hydrALAZINE 20 MG/ML VIAL ONE (11:17)
[2022-03-26] MEDS ORDERED: Mag-Al 1200 mg/1200 mg/30 ML UDCUP ONE (11:18)
[2022-03-26] MEDS: Morphine 2 MG/ML VIAL SLOW IVP PRN ×4 (12:27→20:29)
[2022-03-26] MEDS ORDERED: Amlodipine 5 MG TAB PO SCH (22:00)
[2022-03-26] MEDS: Acetaminophen 325 MG TAB PO PRN (22:14)
[2022-03-26] MEDS ORDERED: Morphine 4 MG/ML VIAL SLOW IVP SCH (23:45)
[2022-03-27] MEDS ORDERED: Morphine 4 MG/ML VIAL SLOW IVP PRN (04:42)
[2022-03-27] MEDS: Morphine 4 MG/ML VIAL SLOW IVP PRN ×2 (04:49→09:24)
[2022-03-27] MEDS: Acetaminophen 325 MG TAB PO PRN (04:56)
[2022-03-27 06:00] LABS: #Basophils 0.1 thou/uL (0.0-0.2); #Eosinphils 0.1 thou/uL (0.0-0.7); #Lymphocytes 2.8 thou/uL (1.20-3.40); #Monocytes 0.7 thou/uL (0.11-0.59); #Neutrophils 8.9 thou/uL (1.40-6.50); %Basophils 1.1 % (0.0-1.0); %Eosinophils 0.7 % (0.0-10.0); %Lymphocytes 22.5 % (21.0-51.0); %Monocytes 5.8 % (0.0-10.0); Hemoglobin 14.3 g/dL (14.0-18.0); Mean Corpuscular HGB CONC 33.1 g/dL (32.0-36.0); Mean Corpuscular Hemoglobin 33.1 pg (27.0-31.0); Mean Platelet Volume 7.5 fL (7.4-10.4); Platelet Count 388 thou/uL (130-400); RBC Distribution Width 12.9 % (11.5-14.5); Red Blood Cell (RBC) Count 4.31 mill/uL (4.70-6.10); White Blood Cell (WBC) Count 12.7 thou/uL (4.8-10.8)
[2022-03-27 06:22] LABS: Anion Gap 9 mmol/L (10-20); BUN (Urea Nitrogen) 13 mg/dL (8.9-20.6); Calc. Creatinine Clearance 89 mL/min (70-130); Calcium 8.8 mg/dL (7.8-10.44); Carbon Dioxide 27 mmol/L (22-29); Chloride 102 mmol/L (98-107); Estimated GFR 113; Glucose 92 mg/dL (70-105); Potassium 3.4 mmol/L (3.5-5.1); Sodium 135 mmol/L (136-145)
[2022-03-27] MEDS: Lactated Ringer's 1,000 ML IV SCH (06:26)
[2022-03-27] MEDS ORDERED: Potassium Chloride 20 MEQ TAB PO SCH (07:45)
[2022-03-27 08:31] LABS: Lactic Acid 0.9 mmol/L (0.5-2.2)
[2022-03-27 08:35] LABS: Lipase 175 U/L (8-78); Magnesium 1.6 mg/dL (1.6-2.6); Phosphorus 2.4 mg/dL (2.3-4.7)
[2022-03-27] MEDS ORDERED: FOLIC ACID IV SCH (09:00)
[2022-03-27] MEDS ORDERED: Senokot S 8.6-50 MG TAB PO SCH ×2 (09:00→21:00)
[2022-03-27] MEDS ORDERED: THIAMINE HCL IV SCH (09:00)
[2022-03-27] MEDS ORDERED: Polyethylene Glycol 3350 17 GM Packet PO SCH ×3 (09:00→21:00)
[2022-03-27] MEDS ORDERED: MULTIVITAMINS IV SCH (09:00)
[2022-03-27] MEDS ORDERED: [UNRECOGNIZED DRUG - OTHER] IV SCH (09:00)
[2022-03-27] MEDS ORDERED: Magnesium 2 GM/50 ML(in water) 2 GM in Premix Bag 1 BAG IVPB SCH (11:30)
[2022-03-27 11:31] VITALS: TEMP 98.2
[2022-03-27] MEDS ORDERED: cloNIDine 0.1 MG TAB PO PRN (12:42)
[2022-03-27 13:20] VITALS: BP 161/112
[2022-03-27] MEDS ORDERED: Ketorolac Tromethamine 30 MG/ML VIAL IVP PRN (14:07)
[2022-03-27] MEDS ORDERED: Lactated Ringer's 1,000 ML IV SCH (18:00)
[2022-03-27] MEDS ORDERED: Bisacodyl 10 MG SUPP PR SCH ×2 (21:00)
[2022-03-28 05:13] LABS: IgG Subclass 1 405 mg/dL (248-810); IgG Subclass 2 231 mg/dL (130-555); IgG Subclass 3 70 mg/dL (15-102); Immunoglobulin - G (Sendout) 811 mg/dL (603-1613)
== END 2022-03-27 14:54 | disposition left against medical advice (07) ==
LOC: ERS 05:47 → ERHOLD 08:22 → T4-A 15:17
PROVIDERS: ADMIT Internal Medicine; ATTEND Internal Medicine
DX: K85.90 Acute pancreatitis without necrosis or infection, unspecified (principal); K82.8 Other specified diseases of gallbladder; Z53.29 Procedure and treatment not carried out because of patient's decision for other reasons; Z20.822 Contact with and (suspected) exposure to COVID-19; E87.1 Hypo-osmolality and hyponatremia; E87.6 Hypokalemia; E83.42 Hypomagnesemia; R03.0 Elevated blood-pressure reading, without diagnosis of hypertension; Z88.8 Allergy status to other drugs, medicaments and biological substances
CPT/HCPCS: 36415; 74177; 76705; 80048; 80053; 82787; 83605; 83690; 83735; 84100; 84478; 84484; 85025; 96361; 96372; 96374; 96375; 96376; G0378; J0360; J2270; J2405; J3411; J3475; J3480; J7120; Q9967; U0003; U0005

== ENCOUNTER 2022-04-11 05:47 | Inpatient (IN) | payer OTHER ==
[2022-04-11] MEDS ORDERED: Lidocaine Viscous Sol 2% 15 ml UD Cup ONE ×2 (06:05→07:36)
[2022-04-11] MEDS ORDERED: Mag-Al 1200 mg/1200 mg/30 ML UDCUP ONE ×2 (06:05→07:36)
[2022-04-11 06:53] LABS: #Eosinphils 0.1 thou/uL (0.0-0.7); #Lymphocytes 1.3 thou/uL (1.20-3.40); #Monocytes 0.6 thou/uL (0.11-0.59); #Neutrophils 12.2 thou/uL (1.40-6.50); %Basophils 0.3 % (0.0-1.0); %Eosinophils 0.7 % (0.0-10.0); %Lymphocytes 9.4 % (21.0-51.0); %Monocytes 4.5 % (0.0-10.0); %Neutrophils 85.2 % (42.0-75.0); Hemoglobin 11.9 g/dL (14.0-18.0); Mean Corpuscular HGB CONC 32.3 g/dL (32.0-36.0); Mean Platelet Volume 8.4 fL (7.4-10.4); Platelet Count 314 thou/uL (130-400); White Blood Cell (WBC) Count 14.3 thou/uL (4.8-10.8)
[2022-04-11 07:22] LABS: ALT (SGPT) 14 U/L (8-55); AST (SGOT) 14 U/L (5-34); Albumin 3.7 g/dL (3.5-5.0); Alkaline Phosphatase 75 U/L (40-110); Anion Gap 12 mmol/L (10-20); BUN (Urea Nitrogen) 42 mg/dL (8.9-20.6); Bilirubin, Total 0.2 mg/dL (0.2-1.2); Calc. Creatinine Clearance 0 mL/min (70-130); Calcium 8.8 mg/dL (7.8-10.44); Carbon Dioxide 31 mmol/L (22-29); Chloride 101 mmol/L (98-107); Estimated GFR 63; Globulin 2.3 g/dL (2.4-3.5); Glucose 79 mg/dL (70-105); Lipase 334 U/L (8-78); Potassium 3.4 mmol/L (3.5-5.1); Sodium 141 mmol/L (136-145)
[2022-04-11] MEDS ORDERED: Dicyclomine 20 MG/2 ML VIAL ONE (07:36)
[2022-04-11] MEDS ORDERED: Ondansetron PF 4 MG/2 ML Vial ONE (07:52)
[2022-04-11] MEDS ORDERED: Morphine 4 MG/ML VIAL ONE (07:52)
[2022-04-11] MEDS ORDERED: Senokot S 8.6-50 MG TAB PO PRN (08:19)
[2022-04-11] MEDS ORDERED: HYDROcodone/Acetaminophen 5/325 mg Tablet PO PRN (08:19)
[2022-04-11] MEDS ORDERED: hydrALAZINE 20 MG/ML VIAL ONE (08:26)
[2022-04-11] MEDS ORDERED: hydrALAZINE 20 MG/ML VIAL SLOW IVP PRN (08:41)
[2022-04-11] MEDS ORDERED: Ondansetron PF 4 MG/2 ML Vial IVP PRN (08:45)
[2022-04-11] MEDS ORDERED: Morphine 4 MG/ML VIAL SLOW IVP SCH (08:45)
[2022-04-11] MEDS ORDERED: Ketorolac Tromethamine 30 MG/ML VIAL ONE (08:54)
[2022-04-11] MEDS ORDERED: Enoxaparin Sodium 40 MG/0.4 ML SYRINGE SC SCH (09:00)
[2022-04-11] MEDS ORDERED: Ketorolac Tromethamine 30 MG/ML VIAL IVP SCH (09:00)
[2022-04-11] MEDS ORDERED: Famotidine/PF 20 mg/2ml Vial SLOW IVP SCH (09:00)
[2022-04-11] MEDS ORDERED: HYDROcodone/Acetaminophen 5/325 mg Tablet ONE (09:59)
[2022-04-11] MEDS: Sodium Chloride 0.9% 1,000 ML IV SCH ×2 (10:31→14:31)
[2022-04-11 10:34] VITALS: TEMP 97.9; BMI 24.1
[2022-04-11] MEDS ORDERED: Iopamidol-370 76% 500 ML 1 ML ONE (10:41)
[2022-04-11] MEDS ORDERED: Acetaminophen 325 MG TAB PO PRN (10:45)
[2022-04-11] MEDS ORDERED: Metoclopramide HCl 10 MG/2 ML VIAL IVP SCH ×2 (11:00→14:00)
[2022-04-11] MEDS: Ketorolac Tromethamine 30 MG/ML VIAL IVP SCH ×2 (11:56→17:41)
[2022-04-11 12:26] LABS: Amphetamine Detected (NotDetected); Barbiturates Screen Not Detected (NotDetected); Benzodiazepine Screen Not Detected (NotDetected); Cocaine Metabolite Screen Not Detected (NotDetected); Methadone Not Detected (NotDetected); Methamphetamine Detected (NotDetected); Opiate Screen Detected (NotDetected); Oxycodone Screen Not Detected (NotDetected); Phencyclidine (PCP) Not Detected (NotDetected); THC/Cannabinoid Screen Detected (NotDetected); Tricyclic Screen Not Detected (NotDetected)
[2022-04-11 16:16] VITALS: BP 149/96
[2022-04-11] MEDS ORDERED: FLU VACC QS2022-23(6MOS UP)/PF 60 MCG/0.5 ML SYRINGE IM ONE (18:00)
== END 2022-04-11 20:15 | disposition left against medical advice (07) | DRG 439 ==
LOC: ERS 05:47 → SUATTDRO 05:47 → T4-A 08:03 → OBSVTOIN 10:58
PROVIDERS: ADMIT Hospitalist; ATTEND Hospitalist
DX: K85.90 Acute pancreatitis without necrosis or infection, unspecified (principal); N17.9 Acute kidney failure, unspecified; Z20.822 Contact with and (suspected) exposure to COVID-19; I10 Essential (primary) hypertension; G43.909 Migraine, unspecified, not intractable, without status migrainosus; F17.210 Nicotine dependence, cigarettes, uncomplicated; F12.10 Cannabis abuse, uncomplicated; F15.10 Other stimulant abuse, uncomplicated; F14.10 Cocaine abuse, uncomplicated; Z28.21 Immunization not carried out because of patient refusal; Z88.8 Allergy status to other drugs, medicaments and biological substances; Z71.6 Tobacco abuse counseling; Z71.51 Drug abuse counseling and surveillance of drug abuser
CPT/HCPCS: 36415; 71045; 74177; 80053; 80306; 80307; 83690; 84484; 85025; 93005; 96361; 96372; 96374; 96375; G0378; J0360; J1885; J2270; J2405; J2765; J7050; Q9967; S0028; U0003; U0005

== ENCOUNTER 2022-04-14 21:28 | Emergency (ER) | payer OTHER ==
[2022-04-14 22:08] LABS: #Lymphocytes 1.8 thou/uL (1.20-3.40); #Monocytes 0.6 thou/uL (0.11-0.59); #Neutrophils 7.3 thou/uL (1.40-6.50); %Basophils 0.2 % (0.0-1.0); %Eosinophils 0.5 % (0.0-10.0); %Lymphocytes 18.4 % (21.0-51.0); %Monocytes 6.4 % (0.0-10.0); %Neutrophils 74.4 % (42.0-75.0); Hemoglobin 13.4 g/dL (14.0-18.0); Mean Corpuscular HGB CONC 32.9 g/dL (32.0-36.0); Mean Corpuscular Hemoglobin 32.7 pg (27.0-31.0); Mean Corpuscular Volume 99.5 fL (78.0-98.0); Mean Platelet Volume 7.2 fL (7.4-10.4); Platelet Count 367 thou/uL (130-400); RBC Distribution Width 12.9 % (11.5-14.5); Red Blood Cell (RBC) Count 4.09 mill/uL (4.70-6.10); White Blood Cell (WBC) Count 9.8 thou/uL (4.8-10.8)
[2022-04-14 22:49] LABS: ALT (SGPT) 14 U/L (8-55); AST (SGOT) 12 U/L (5-34); Alkaline Phosphatase 71 U/L (40-110); Anion Gap 12 mmol/L (10-20); BUN (Urea Nitrogen) 15 mg/dL (8.9-20.6); Bilirubin, Total 0.4 mg/dL (0.2-1.2); CK (CPK) 118 U/L (30-200); Calc. Creatinine Clearance 0 mL/min (70-130); Carbon Dioxide 34 mmol/L (22-29); Chloride 96 mmol/L (98-107); Estimated GFR 111; Globulin 2.4 g/dL (2.4-3.5); Glucose 95 mg/dL (70-105); Protein, Total 6.4 g/dL (6.0-8.3); Sodium 139 mmol/L (136-145); Troponin I Less than 0.010 ng/mL (< 0.028)
[2022-04-14] MEDS ORDERED: Potassium Chloride 20 MEQ TAB ONE (23:42)
== END 2022-04-15 00:15 | disposition home or self-care (01) ==
LOC: ERS 21:28
DX: R07.89 Other chest pain (principal); I10 Essential (primary) hypertension; F17.210 Nicotine dependence, cigarettes, uncomplicated
CPT/HCPCS: 36415; 71045; 80053; 82550; 83880; 84484; 85025; 93005

== ENCOUNTER 2022-04-15 03:48 | Emergency (ER) | payer OTHER ==
[2022-04-15] MEDS ORDERED: Metoclopramide HCl 10 MG/2 ML VIAL ONE (04:30)
[2022-04-15] MEDS ORDERED: diphenhydrAMINE 50 MG/ML VIAL ONE (04:30)
[2022-04-15 04:54] LABS: #Basophils 0.1 thou/uL (0.0-0.2); #Lymphocytes 2.1 thou/uL (1.20-3.40); #Monocytes 0.9 thou/uL (0.11-0.59); #Neutrophils 7.6 thou/uL (1.40-6.50); %Basophils 0.7 % (0.0-1.0); %Eosinophils 0.4 % (0.0-10.0); %Lymphocytes 19.5 % (21.0-51.0); %Monocytes 8.3 % (0.0-10.0); %Neutrophils 71.1 % (42.0-75.0); Hemoglobin 13.8 g/dL (14.0-18.0); Mean Corpuscular HGB CONC 32.4 g/dL (32.0-36.0); Mean Corpuscular Hemoglobin 32.4 pg (27.0-31.0); Platelet Count 377 thou/uL (130-400); RBC Distribution Width 12.8 % (11.5-14.5); Red Blood Cell (RBC) Count 4.25 mill/uL (4.70-6.10); White Blood Cell (WBC) Count 10.7 thou/uL (4.8-10.8)
[2022-04-15 05:05] LABS: ALT (SGPT) 12 U/L (8-55); AST (SGOT) 13 U/L (5-34); Albumin 4.1 g/dL (3.5-5.0); Alkaline Phosphatase 73 U/L (40-110); Anion Gap 10 mmol/L (10-20); BUN (Urea Nitrogen) 16 mg/dL (8.9-20.6); Bilirubin, Total 0.3 mg/dL (0.2-1.2); Calc. Creatinine Clearance 0 mL/min (70-130); Carbon Dioxide 32 mmol/L (22-29); Chloride 95 mmol/L (98-107); Estimated GFR 111; Globulin 2.6 g/dL (2.4-3.5); Glucose 108 mg/dL (70-105); Lipase 307 U/L (8-78); Potassium 3.4 mmol/L (3.5-5.1); Protein, Total 6.7 g/dL (6.0-8.3); Sodium 134 mmol/L (136-145)
[2022-04-15] MEDS ORDERED: Morphine 4 MG/ML VIAL ONE (05:39)
[2022-04-15 07:26] LABS: Troponin I Less than 0.010 ng/mL (< 0.028)
== END 2022-04-15 07:25 ==
LOC: ERS 03:48
DX: R07.89 Other chest pain (principal); K86.1 Other chronic pancreatitis; K02.9 Dental caries, unspecified; I10 Essential (primary) hypertension; F17.210 Nicotine dependence, cigarettes, uncomplicated
CPT/HCPCS: 36415; 70450; 71045; 80053; 82550; 83690; 83880; 84484; 85025; 85379; 93005; 96365; 96375; J1200; J2270; J2765

== ENCOUNTER 2022-05-14 10:07 | Emergency (ER) | payer OTHER ==
[2022-05-14 11:40] LABS: #Eosinphils 0.2 thou/uL (0.0-0.7); #Lymphocytes 1.7 thou/uL (1.20-3.40); #Monocytes 0.8 thou/uL (0.11-0.59); #Neutrophils 6.4 thou/uL (1.40-6.50); %Basophils 0.5 % (0.0-1.0); %Eosinophils 1.9 % (0.0-10.0); %Lymphocytes 18.3 % (21.0-51.0); %Monocytes 8.4 % (0.0-10.0); Hemoglobin 13.4 g/dL (14.0-18.0); Mean Corpuscular HGB CONC 32.2 g/dL (32.0-36.0); Mean Corpuscular Hemoglobin 32.3 pg (27.0-31.0); Mean Platelet Volume 6.4 fL (7.4-10.4); Platelet Count 456 10x3/uL (130-400); RBC Distribution Width 13.2 % (11.5-14.5); Red Blood Cell (RBC) Count 4.14 mill/uL (4.70-6.10); White Blood Cell (WBC) Count 9.1 10x3/uL (4.8-10.8)
[2022-05-14 11:55] LABS: ALT (SGPT) 24 U/L (8-55); AST (SGOT) 14 U/L (5-34); Albumin 4.6 g/dL (3.5-5.0); Alkaline Phosphatase 103 U/L (40-110); Anion Gap 13 mmol/L (10-20); BUN (Urea Nitrogen) 11 mg/dL (8.9-20.6); Bilirubin, Total 0.3 mg/dL (0.2-1.2); Calc. Creatinine Clearance 0 mL/min (70-130); Calcium 10.4 mg/dL (7.8-10.44); Carbon Dioxide 29 mmol/L (22-29); Chloride 104 mmol/L (98-107); Estimated GFR 89; Globulin 2.9 g/dL (2.4-3.5); Glucose 101 mg/dL (70-105); Lipase 34 U/L (8-78); Potassium 4.7 mmol/L (3.5-5.1); Protein, Total 7.5 g/dL (6.0-8.3); Sodium 141 mmol/L (136-145)
[2022-05-14] MEDS ORDERED: Morphine 4 MG/ML VIAL ONE (12:36)
[2022-05-14] MEDS ORDERED: Ketorolac Tromethamine 30 MG/ML VIAL ONE (12:36)
== END 2022-05-14 12:35 ==
LOC: ERS 10:07
DX: R51.9 Headache, unspecified (principal); R10.9 Unspecified abdominal pain; G89.29 Other chronic pain; I10 Essential (primary) hypertension; F17.210 Nicotine dependence, cigarettes, uncomplicated; Z79.899 Other long term (current) drug therapy
CPT/HCPCS: 36415; 71045; 80053; 83690; 84484; 85025; 93005; 96372; J1885; J2270

== ENCOUNTER 2023-04-20 09:40 | Emergency (ER) | payer OTHER, SELFPAY ==
[2023-04-20] MEDS ORDERED: Cyclobenzaprine 10 MG TAB ONE (10:37)
[2023-04-20] MEDS ORDERED: predniSONE 20 MG TAB ONE (10:38)
[2023-04-20] MEDS ORDERED: Ketorolac Tromethamine 30 MG/ML VIAL ONE (10:39)
[2023-04-20 13:21] LABS: SARS-CoV-2 NAA Rapid Test Not Detected (NotDetected)
== END 2023-04-20 13:48 | disposition home or self-care (01) ==
LOC: ERS 09:40
DX: B34.9 Viral infection, unspecified (principal); M54.16 Radiculopathy, lumbar region; I10 Essential (primary) hypertension; F17.210 Nicotine dependence, cigarettes, uncomplicated; Z20.822 Contact with and (suspected) exposure to COVID-19
CPT/HCPCS: 71045; 72100; 96372; J1885; J7512